=== PATIENT | female | born 1980 | race African-American/Black ===

== ENCOUNTER 2017-05-09 20:25 | Emergency (ER) | payer OTHER ==
[~2017-05-09] VITALS: Ht 160 cm; Wt 167.4 kg
[~2017-05-09 20:25] MED LIST: BACTRIM DS TAB1 EACH PO; BENADRYL25 MG PO; BIRTH CONTROL PILL; CIPRO500 MG PO; CLONAZEPAM 0.50.5 M1 PO; DIFLUCAN150 MG PO; FLAGYL500 MG PO; FLEXERIL PO; IBUPROFEN 400400 M1; IBUPROFEN 600600 M1 PO; IBUPROFEN 800800 M1 PO; IBUPROFEN 800800 MG PO; LORTAB 10 MG-3473 ML PO; MACROBID 100 M100 M2 PO; MEDROL DOSPAK21 TAB PO; NAPROSYN500 MG PO; NOHOMEMEDICATIONS; NORCO 5-325 TA1 EACH PO; PHENAZOPYRIDIN200 M2 PO; PREDNISONE50 MG PO; PROZAC20 MG PO; TRAZODONE HCL100 MG PO; ULTRAM 50MG TAB50 MG PO; ZPAK PO
[2017-05-09 20:26] VITALS: BP 152/89
[2017-05-09 20:45] LABS: URINE BILIRUBIN NEGATIVE (Negative); URINE BLOOD NEGATIVE (Negative); URINE COLOR YELLOW; URINE GLUCOSE-RANDOM* NEGATIVE (Negative); URINE KETONES NEGATIVE (Negative); URINE NITRITE NEGATIVE (Negative); URINE PROTEIN (DIPSTICK) NEGATIVE (Negative); URINE SPECIFIC GRAVITY 1.025 (1.003-1.035); URINE UROBILINOGEN 0.2 E.U./dl (0.2-1.0)
== END 2017-05-09 21:35 | disposition home or self-care (01) ==
LOC: ER 20:25
PROVIDERS: Emergency Medicine
DX: A64 Unspecified sexually transmitted disease (principal); N89.8 Other specified noninflammatory disorders of vagina; Z90.49 Acquired absence of other specified parts of digestive tract; Z68.44 Body mass index [BMI] 60.0-69.9, adult; Z88.5 Allergy status to narcotic agent

== ENCOUNTER 2017-10-25 12:14 | Emergency (ER) | payer OTHER ==
[~2017-10-25] VITALS: Ht 160 cm; Wt 163.3 kg
[2017-10-25] MEDS ORDERED: LATUDA60 MG PO (12:34)
[2017-10-25] MEDS ORDERED: NORFLEX100 MG PO (13:54)
[2017-10-25] MEDS ORDERED: IBUPROFEN 800800 M1 PO (13:59)
== END 2017-10-25 14:05 | disposition home or self-care (01) ==
LOC: ER 12:14
DX: M54.5 Low back pain (principal); M25.561 Pain in right knee; E66.01 Morbid (severe) obesity due to excess calories; Z68.44 Body mass index [BMI] 60.0-69.9, adult; Z90.49 Acquired absence of other specified parts of digestive tract

== ENCOUNTER 2018-10-22 19:34 | Emergency (ER) | payer OTHER ==
[~2018-10-22] VITALS: Ht 160 cm; Wt 176.9 kg
[~2018-10-22 19:34] MED LIST changes: +LATUDA60 MG PO; +NORFLEX100 MG PO
[2018-10-22] MEDS ORDERED: IBUPROFEN 400400 M2 PO (20:31)
[2018-10-22] MEDS ORDERED: PSEUDOEPHEDRINE30 MG PO (20:31)
[2018-10-22 20:45] VITALS: BP 121/56
== END 2018-10-22 20:46 | disposition home or self-care (01) ==
LOC: ER 19:34
DX: H69.82 Other specified disorders of Eustachian tube, left ear (principal); E66.01 Morbid (severe) obesity due to excess calories; Z68.44 Body mass index [BMI] 60.0-69.9, adult; Z90.49 Acquired absence of other specified parts of digestive tract

== ENCOUNTER 2019-05-18 21:22 | Emergency (ER) | payer OTHER ==
[~2019-05-18] VITALS: Ht 160 cm; Wt 176.9 kg
[~2019-05-18 21:22] MED LIST changes: +IBUPROFEN 400400 M2 PO; +PSEUDOEPHEDRINE30 MG PO
[2019-05-18] MEDS ORDERED: VITAMIN D5000 UNIT PO ×2 (21:32)
[2019-05-18] MEDS ORDERED: NAPROSYN500 MG PO (22:30)
[2019-05-18 22:44] VITALS: BP 138/70
--- NOTE | 2019-05-22 07:55 | EKG ---
[place] [address] [facility] [place] [address] ELECTROCARDIOGRAM REPORT Name: LAURENCE NOVOA Room #: DEP [facility]#: [id number] Admission: 05/18/19 Attend Phys: Discharge: 05/18/19 Date of : 84 Report #: [id number] THIS REPORT FOR: //name// [facility] ED Test Date: 2019-05-18 Test Time: 21:34:43 Pat Name: LAURENCE NOVOA Department: Room: Gender: F Nursing Student: BEATRIZ : 1980 Requested By: Lg Mosher Order Number: [id number] MD: Parrish Cline Measurements Intervals [place] Rate: 69 P: 46 DC: 158 QRS: 19 QRSD: 89 T: 27 QT: 375 QTc: 402 Interpretive Statements Sinus rhythm with sinus arrhythmia ST elev, probable normal early repol pattern No previous ECG available for comparison Electronically Signed On 05-22-2019 7:55:38 CDT by Parrish Cilne [email or web address] <ELECTRONICALLY SIGNED> By: Parrish Cline MD, [facility] 05/22/19 0755 [id number] Parrish Cline MD, FACC /EPI
== END 2019-05-18 22:52 | disposition home or self-care (01) ==
LOC: ER 21:22
DX: R07.89 Other chest pain (principal); E66.01 Morbid (severe) obesity due to excess calories; Z68.44 Body mass index [BMI] 60.0-69.9, adult; Z90.49 Acquired absence of other specified parts of digestive tract

== ENCOUNTER 2019-09-21 03:57 | Emergency (ER) | payer OTHER ==
[~2019-09-21] VITALS: Ht 157.5 cm; Wt 176.9 kg
[~2019-09-21 03:57] MED LIST changes: +VITAMIN D5000 UNIT PO
[2019-09-21] MEDS ORDERED: MOBIC15 MG PO (05:57)
[2019-09-21] MEDS ORDERED: FLEXERIL PO (05:57)
[2019-09-21] MEDS ORDERED: NORCO 5-325 TA1 EAC1 PO (05:57)
[2019-09-21 06:27] VITALS: BP 140/88
== END 2019-09-21 06:30 | disposition home or self-care (01) ==
LOC: ER 03:57
DX: M54.5 Low back pain (principal); Z90.49 Acquired absence of other specified parts of digestive tract

== ENCOUNTER 2020-03-28 17:42 | Emergency (ER) | payer OTHER ==
[~2020-03-28] VITALS: Ht 160 cm; Wt 184.2 kg
[~2020-03-28 17:42] MED LIST changes: +MOBIC15 MG PO; +NORCO 5-325 TA1 EAC1 PO
[2020-03-28 17:43] VITALS: BP 132/81
[2020-03-28] MEDS ORDERED: ULTRAM 50MG TAB50 MG PO (18:13)
== END 2020-03-28 18:17 | disposition home or self-care (01) ==
LOC: ER 17:42
DX: Z20.828 Contact with and (suspected) exposure to other viral communicable diseases (principal); E66.01 Morbid (severe) obesity due to excess calories; Z68.45 Body mass index [BMI] 70 or greater, adult; Z90.49 Acquired absence of other specified parts of digestive tract

== ENCOUNTER → 2020-04-15 | Outpatient (CLI) | payer OTHER ==
[2020-04-15 14:18] LABS: ABSOLUTE NEUTROPHILS 4.7 thou/uL (1.4-8.2); BASOPHILS 0.8 % (0.0-2.0); EOSINOPHILS 3.6 % (0.0-3.0); HEMATOCRIT 33.8 % (37.0-47.0); HEMOGLOBIN 10.8 gm/dL (12.0-15.0); LYMPHOCYTES 36.3 % (24.0-44.0); MCH 28.7 pg (26.0-34.0); MCHC 31.8 g/dL (28.0-37.0); MCV 90.2 fL (80.0-100.0); MONOCYTES 4.6 % (1.0-8.0); PLATELET COUNT 523 thou/uL (150-400); POLYS 54.7 % (36.0-66.0); RBC 3.75 mil/uL (4.20-5.00); RDW 14.2 % (10.5-14.5); WBC 8.6 thou/uL (4.0-11.0)
[2020-04-15 14:30] LABS: ALBUMIN 3.3 g/dL (3.4-5.0); CALCIUM 8.5 mg/dL (8.5-10.1); CREATININE 0.9 mg/dL (0.6-1.0); POTASSIUM 3.9 mmol/L (3.5-5.1); TOTAL BILIRUBIN 0.4 mg/dL (0.2-1.0); TOTAL PROTEIN 7.5 g/dL (6.4-8.2)
== END ==
LOC: LAB 13:29
PROVIDERS: ATTEND Nurse Practitioner
DX: R53.83 Other fatigue (principal); I10 Essential (primary) hypertension

== ENCOUNTER 2020-04-19 07:59 | Emergency (ER) | payer OTHER ==
[~2020-04-19] VITALS: Ht 160 cm; Wt 183.2 kg
[2020-04-19] MEDS ORDERED: IRON325 PO (08:16)
[2020-04-19] MEDS ORDERED: MOBIC15 MG PO (09:44)
[2020-04-19] MEDS ORDERED: NORCO 5-325 TA1 EAC2 PO (09:44)
[2020-04-19 10:14] VITALS: BP 135/85
== END 2020-04-19 10:18 | disposition home or self-care (01) ==
LOC: ER 07:59
DX: S86.811A Strain of other muscle(s) and tendon(s) at lower leg level, right leg, initial encounter (principal); Z79.899 Other long term (current) drug therapy; X58.XXXA Exposure to other specified factors, initial encounter; Y93.89 Activity, other specified; Y92.89 Other specified places as the place of occurrence of the external cause; Y99.8 Other external cause status

== ENCOUNTER → 2020-04-21 | Outpatient (CLI) | payer OTHER ==
[~2020-04-21] MED LIST changes: +IRON325 PO; +NORCO 5-325 TA1 EAC2 PO
== END ==
LOC: CAT 12:56
DX: R51 Headache (principal); R29.2 Abnormal reflex; G93.2 Benign intracranial hypertension; R42 Dizziness and giddiness

== ENCOUNTER → 2020-06-04 | Outpatient (CLI) | payer OTHER | LOC: MRI 11:32 | PROVIDERS: ATTEND Orthopaedic Surgery | DX: S83.206A Unspecified tear of unspecified meniscus, current injury, right knee, initial encounter (principal); M94.261 Chondromalacia, right knee; X58.XXXA Exposure to other specified factors, initial encounter; Y93.89 Activity, other specified; Y92.89 Other specified places as the place of occurrence of the external cause; Y99.8 Other external cause status ==

== ENCOUNTER → 2020-07-09 | Outpatient (CLI) | payer OTHER ==
[~2020-07-09] MED LIST changes: +DUEXIS 800-26.1 EACH PO; +HAIR, SKIN & N1 EAC3 PO; +VITAMIN C500 M2 PO; +VITAMIN D310 MCG PO
== END ==
LOC: LAB 12:03
PROVIDERS: ATTEND Orthopaedic Surgery
DX: Z01.812 Encounter for preprocedural laboratory examination (principal); Z20.828 Contact with and (suspected) exposure to other viral communicable diseases

== ENCOUNTER 2020-07-14 06:53 | Day surgery (SDC) | payer OTHER ==
[~2020-07-14] VITALS: Ht 160 cm; Wt 183.3 kg
[2020-07-14 08:12] VITALS: BP 145/67
[2020-07-14 11:35] VITALS: BP 145/67
--- NOTE | 2020-07-14 12:11 | O ---
[facility] [place] [address] OPERATIVE REPORT Name: LAURENCE NOVOA Room #: 150-2 [facility] M.R.#: [id number] Admission: 07/14/20 Attend Phys: Tip Velez MD Discharge: Date of : 84 Report #: [id number] THIS REPORT FOR: cc: Kitty Hutchison Beth RNP Clymer, David J. MD ~ CC: Kitty Velez DATE OF SERVICE: 07/14/2020 PREOPERATIVE DIAGNOSIS: Right knee sprain with medial meniscus tear and posttraumatic chondromalacia. POSTOPERATIVE DIAGNOSES: 1. Right knee pain with small posterior horn medial meniscus tear. 2. Mild posterolateral meniscus tear and mild lateral femoral condyle chondromalacia. PROCEDURE: Right knee arthroscopy with partial medial meniscectomy and debridement of the lateral femoral condyle chondromalacia. SURGEON: Tip Velez MD INDICATIONS: This morbidly obese 40-year-old female complains of chronic progressive right knee pain, which is stretched over the past 6-8 months. She does not recall any major accidents or injuries, but she is very heavy weighing, approximately 400 pounds and certainly may have stressed or injured the knee at any point in the past. She and my partner, Dr. Grajeda have managed her symptoms in a conservative fashion. Medical management and activity moderation have not been clearly helpful. An MRI study suggests some tearing in the posterior horn of the medial meniscus as well as some areas of chondromalacia. Given these findings and other areas of chondromalacia, we have elected to go ahead with right knee arthroscopy. This was originally scheduled with Dr. Grajeda, but she was unable to proceed, given a personal illness: The patient understands and prefer to go ahead with surgery today by me. We have discussed preoperatively her history, symptoms and MRI findings. The patient and her family understand well and wish to proceed with right knee arthroscopy. DESCRIPTION OF PROCEDURE: The patient was taken to the operating room where she was placed under brief general anesthetic. Given her size, tourniquet and leg remy were not possible. She was maintained in the supine position and a bump placed under the right hip and thigh to allow some knee flexion. The right lower extremity was meticulously prepped and draped. A spinal needle was used to evaluate for an appropriate portal site. The scope was introduced through a lateral parapatellar tendon approach and the shaver introduced through a medial [address] [place] [address] OPERATIVE REPORT Name: LAURENCE NOVOA Room #: 150-2 [facility]#: [id number] Admission: 07/14/20 Attend Phys: Tip Velez MD Discharge: Date of : 84 Report #: [id number] parapatellar tendon approach. The various compartments of the knee were then sequentially visualized and documented with arthroscopic photography. There was some generalized synovial hypertrophy and a moderate size plica extending over the anterolateral femoral condyle. This was debrided mostly for visualization purposes. The intercondylar notch revealed the cruciate ligaments to be present and functioning normally. There seems to be good cartilage on the medial and lateral femoral condyle over most of the weightbearing surface. There is good cartilage on the patella with only minor areas of fraying and fissuring. The medial compartment reveals good cartilage on both the femoral condyle and the medial tibial plateau. The medial meniscus appears to be largely intact and stable. There was, however, some area of irregular fissuring and tearing in the posterior horn region. This was gently debrided with a small rotary shaver. The rest of the meniscus seemed to be intact and stable. No further debridement on the medial side was necessary. The lateral compartment revealed generally normal lateral meniscus with only minor fraying along its inner margin at the mid lateral and posterolateral corner. These areas were very gently debrided using a small rotary shaver. The cartilage on both the weightbearing surface of both the femoral condyle and tibial plateau was in good shape when the knee was flexed; however, there was an area of moderately severe chondromalacia with some delamination. This was along the posterior aspect of the lateral femoral condyle and came into contact with the tibial plateau when the knee was flexed beyond 50 or 60 degrees. This area of cartilage damage was gently debrided with a rotary shaver. The knee was copiously irrigated. All excess fluid was evacuated from the knee. The knee was then injected with 30 mL of 0.5% Marcaine with epinephrine and 80 mg of Depo-Medrol. The puncture sites were closed with interrupted nylon suture. A sterile dressing was applied. The patient was then awakened and returned to recovery room in good condition. She will be monitored there for suitable period and then discharged home under family care. She is certainly at risk for other problems given her obesity. I have encouraged aspirin and general activity. I will see her back in 1 week for followup and suture removal. <ELECTRONICALLY SIGNED> By: Tip Velez MD 07/14/20 1211 [id number] Tip Velez MD /nt
== END 2020-07-14 12:24 | disposition home or self-care (01) ==
LOC: OR 06:53 → TBA 06:53 → OR 09:17
PROVIDERS: ATTEND Orthopaedic Surgery
DX: M25.561 Pain in right knee (principal); M23.221 Derangement of posterior horn of medial meniscus due to old tear or injury, right knee; M23.261 Derangement of other lateral meniscus due to old tear or injury, right knee; M94.261 Chondromalacia, right knee; G89.29 Other chronic pain; D64.9 Anemia, unspecified; E66.09 Other obesity due to excess calories; Z98.890 Other specified postprocedural states; Z79.899 Other long term (current) drug therapy; Z90.49 Acquired absence of other specified parts of digestive tract; Z68.45 Body mass index [BMI] 70 or greater, adult
CPT/HCPCS: 50101; 50405; 56526; 57103; 62110; 62900; 70005